=== PATIENT | female | born 1960 | race American Indian/Alaskan Native ===

== ENCOUNTER 2018-02-11 20:29 | Emergency (ER) | payer MEDICARE ==
[2018-02-12] MEDS ORDERED: TORADOL ONE (00:01)
[2018-02-12] MEDS ORDERED: TORADOL IM ONE (00:02)
--- NOTE | 2018-02-12 00:06 | Emergency Department Report ---
ED Neck Pain/Injury HPI - General Chief Complaint: Neck Pain/Injury Stated Complaint: SHOULDER NECK PAIN Time Seen by Provider: 02/12/18 00:01 Mode of arrival: Ambulatory Limitations: Physical Limitation - History of Present Illness Initial Comments: 57-year-old -[place] female with a past medical history of arthritis, asthma, diabetes comes in complaining of neck pain 1 month. Patient reports that she's had this type of pain in the past and was given muscle relaxant and pain medication. Patient with this she has not taken any pain medication. She has tried rubbing topical cream and icy hot patches which reports does not help. Patient denies any trauma she does not do any repetitive work. She has had no fever no chills no nausea no vomiting. MD Complaint: neck pain -: month(s) (1) Severity: similar to prior neck ana maria Severity scale (0 -10): 10 Quality: burning, aching Consistency: constant Improves With: medication OTC/prescribe Worsens With: movement of neck Associated Symptoms: none Treatments Prior to Arrival: none - Related Data Previous Rx's Medication Instructions Recorded Last Taken Type Naproxen [Naprosyn] 500 mg PO BID #15 tablet 02/12/18 Unknown Rx methOCARBAMOL [Robaxin TAB] 500 mg PO BID #15 tab 02/12/18 Unknown Rx Allergies Allergy/AdvReac Type Severity Reaction Status Date / Time aspirin Allergy Swelling Verified 02/11/18 21:22 ED Review of Systems ROS: Stated complaint: SHOULDER NECK PAIN Other details as noted in HPI Constitutional: denies: chills, fever Eyes: denies: eye pain, eye discharge, vision change ENT: denies: ear pain, throat pain Respiratory: denies: cough, shortness of breath, wheezing Cardiovascular: denies: chest pain, palpitations Endocrine: no symptoms reported Gastrointestinal: denies: abdominal pain, nausea, diarrhea Genitourinary: denies: urgency, dysuria, discharge Musculoskeletal: myalgia, other (neck pain). denies: back pain, joint swelling , arthralgia Skin: denies: rash, lesions Neurological: denies: headache, weakness, paresthesias Psychiatric: denies: anxiety, depression Hematological/Lymphatic: denies: easy bleeding, easy bruising ED Past Medical Hx - Past Medical History Previous Medical History?: Yes Hx Diabetes: Yes Hx Arthritis: Yes Hx Asthma: Yes - Surgical History Past Surgical History?: Yes Hx Cholecystectomy: Yes Additional Surgical History: tonsils, eye, spur removal - Social History Smoking Status: Former Smoker Substance Use Type: None - Medications Home Medications: Home Medications Medication Instructions Recorded Confirmed Last Taken Type Naproxen [Naprosyn] 500 mg PO BID #15 tablet 02/12/18 Unknown Rx methOCARBAMOL [Robaxin TAB] 500 mg PO BID #15 tab 02/12/18 Unknown Rx ED Physical Exam - General Limitations: Physical Limitation General appearance: alert, in no apparent distress - Head Head exam: Present: atraumatic, normocephalic - ENT ENT exam: Present: mucous membranes moist - Neck Neck exam: Present: normal inspection, tenderness (left trapeze), full ROM. Absent: lymphadenopathy - Extremities Exam Extremities exam: Present: normal inspection, full ROM. Absent: tenderness - Back Exam Back exam: Present: normal inspection, full ROM. Absent: tenderness - Neurological Exam Neurological exam: Present: alert, oriented X3 - Psychiatric Psychiatric exam: Present: normal affect, normal mood - Skin Skin exam: Present: warm, dry, intact, normal color. Absent: rash ED Course Vital Signs 02/11/18 21:22 Temperature 98.1 F Pulse Rate 84 Respiratory 20 Rate Blood Pressure 132/85 O2 Sat by Pulse 99 Oximetry ED Medical Decision Making - Medical Decision Making Patient has been evaluated by this provider fast track. Patient reports that she has an allergy to aspirin but can take naproxen and ibuprofen. Discussed the patient we will give her a Toradol injection. I will discharge patient home on naproxen and Robaxin for neck pain and muscle spasm. Patient verbalized understanding. Critical care attestation.: If time is entered above; I have spent that time in minutes in the direct care of this critically ill patient, excluding procedure time. ED Disposition Clinical Impression: Muscle spasms of neck Disposition: DC-01 TO HOME OR SELFCARE Is pt being admited?: No Does the pt Need Aspirin: No Condition: Stable Instructions: Muscle Spasm (ED) Additional Instructions: Please take medication as prescribed. Follow up with her primary care provider. Prescriptions: methOCARBAMOL [Robaxin TAB] 500 mg PO BID #15 tab Naproxen [Naprosyn] 500 mg PO BID #15 tablet Referrals: AMAN FLOREZ MD [Primary Care Provider] - 3-5 Days EFRAIN DIANA MD [Referring] - 3-5 Days
[2018-02-12 00:27] VITALS: BP 131/83
== END 2018-02-12 00:27 | disposition home or self-care (01) ==
LOC: ED 20:29
DX: M54.2 Cervicalgia (principal); E11.9 Type 2 diabetes mellitus without complications; M19.90 Unspecified osteoarthritis, unspecified site; Z87.891 Personal history of nicotine dependence; Z88.6 Allergy status to analgesic agent
CPT/HCPCS: 96372; 99282; J1885

== ENCOUNTER 2018-02-28 14:35 | Emergency (ER) | payer MEDICARE, MEDICAID ==
--- NOTE | 2018-02-28 19:00 | Emergency Department Report ---
Blank Doc - Documentation Documentation: Patient is a 57-year-old female who has some vaginal irritation for the last several days who denies dysuria vaginal discharge nausea vomiting diarrhea at this time. Patient also states she has a rumbling sensation in her upper abdomen with frequent belching as well for the past 3 days. Urinalysis will be performed to rule out UTI. Patient has no gallbladder and most likely the upper abdominal discomfort is likely gas related.
[2018-02-28 20:28] LABS: Bacteria,Urine 2+ /HPF (Negative); Bilirubin,Urine NEG (Negative); Blood,Urine SM (Negative); Color,Urine Yellow (Yellow); Mucus,Urine FEW /HPF; Protein,Urine <15 mg/dL mg/dL (Negative); Urobilinogen,Urine < 2.0 mg/dL (<2.0)
--- NOTE | 2018-02-28 20:58 | Emergency Department Report ---
ED Female HPI - General Chief complaint: Urogenital-Female Stated complaint: ABD PAIN/VAGINAL ISSUES Time Seen by Provider: 02/28/18 18:46 Source: patient Mode of arrival: Ambulatory Limitations: No Limitations - History of Present Illness Initial comments: Patient is a 57-year-old female who has some vaginal irritation for the last several days. Patient states that she uses approximately irritation with no lesions or itching. She denies fever/chills/nausea/vomiting/ abdominal pain/vaginal discharge/vaginal lesions or bleeding/diarrhea Patient also states she has a rumbling sensation in her upper abdomen with frequent belching as well for the past 3 days. Patient states she is able to eat food and drink fluids with no problems. - Related Data Previous Rx's Medication Instructions Recorded Last Taken Type Naproxen [Naprosyn] 500 mg PO BID #15 tablet 02/12/18 Unknown Rx methOCARBAMOL [Robaxin TAB] 500 mg PO BID #15 tab 02/12/18 Unknown Rx Ciprofloxacin HCl [Ciprofloxacin 500 mg PO Q12HR #14 tab 02/28/18 Unknown Rx TAB] Famotidine [Pepcid] 20 mg PO BID #20 tablet 02/28/18 Unknown Rx Allergies Allergy/AdvReac Type Severity Reaction Status Date / Time aspirin Allergy Swelling Verified 02/11/18 21:22 ED Review of Systems ROS: Stated complaint: ABD PAIN/VAGINAL ISSUES Other details as noted in HPI Constitutional: denies: chills, fever Eyes: denies: eye pain, eye discharge, vision change ENT: denies: ear pain, throat pain Respiratory: denies: cough, shortness of breath, wheezing Cardiovascular: denies: chest pain, palpitations Endocrine: no symptoms reported Gastrointestinal: denies: abdominal pain, nausea, diarrhea, constipation Genitourinary: frequency. denies: urgency, dysuria, hematuria, discharge, dyspareunia Musculoskeletal: denies: back pain, joint swelling, arthralgia Skin: denies: rash, lesions Neurological: denies: headache, weakness, paresthesias Psychiatric: denies: anxiety, depression Hematological/Lymphatic: denies: easy bleeding, easy bruising ED Past Medical Hx - Past Medical History Hx Diabetes: Yes Hx Arthritis: Yes Hx Asthma: Yes - Surgical History Hx Cholecystectomy: Yes Additional Surgical History: tonsils, eye, spur removal - Social History Smoking Status: Former Smoker Substance Use Type: None - Medications Home Medications: Home Medications Medication Instructions Recorded Confirmed Last Taken Type Naproxen [Naprosyn] 500 mg PO BID #15 tablet 02/12/18 Unknown Rx methOCARBAMOL [Robaxin TAB] 500 mg PO BID #15 tab 02/12/18 Unknown Rx Ciprofloxacin HCl [Ciprofloxacin 500 mg PO Q12HR #14 tab 02/28/18 Unknown Rx TAB] Famotidine [Pepcid] 20 mg PO BID #20 tablet 02/28/18 Unknown Rx ED Physical Exam - General Limitations: No Limitations General appearance: alert, in no apparent distress - Head Head exam: Present: atraumatic, normocephalic - Eye Eye exam: Present: normal appearance - ENT ENT exam: Present: mucous membranes moist - Neck Neck exam: Present: normal inspection - Respiratory Respiratory exam: Present: normal lung sounds bilaterally. Absent: respiratory distress - Cardiovascular Cardiovascular Exam: Present: regular rate, normal rhythm. Absent: systolic murmur, diastolic murmur, rubs, gallop - GI/Abdominal GI/Abdominal exam: Present: soft, normal bowel sounds - Extremities Exam Extremities exam: Present: normal inspection - Back Exam Back exam: Present: normal inspection - Neurological Exam Neurological exam: Present: alert, oriented X3 - Psychiatric Psychiatric exam: Present: normal affect, normal mood - Skin Skin exam: Present: warm, dry, intact, normal color. Absent: rash ED Course Vital Signs 02/28/18 15:33 Temperature 97.8 F Pulse Rate 74 Respiratory 18 Rate Blood Pressure 131/84 O2 Sat by Pulse 100 Oximetry ED Medical Decision Making - Medical Decision Making This is a 57-year-old female who presents to ED with urinary tract infection ED course: Urinalysis positive for bacteria, leukocytes, nitrites. I discussed findings with the patient. I discussed the patient will need antibiotics I discussed the patient will follow up with her primary care physician. Patient is in no acute or respiratory distress. Vital signs are normal. Pepcid given for acid reflux. Critical care attestation.: If time is entered above; I have spent that time in minutes in the direct care of this critically ill patient, excluding procedure time. ED Disposition Clinical Impression: UTI (urinary tract infection), uncomplicated Disposition: DC-01 TO HOME OR SELFCARE Is pt being admited?: No Does the pt Need Aspirin: No Condition: Stable Instructions: Urinary Tract Infection in Women (ED) Additional Instructions: Make sure to follow up with the primary care physician as discussed. Take all your medications as you've been prescribed. If you have any worsening symptoms or develop new symptoms please return to ED immediately. Prescriptions: Ciprofloxacin HCl [Ciprofloxacin TAB] 500 mg PO Q12HR #14 tab Famotidine [Pepcid] 20 mg PO BID #20 tablet Referrals: PRIMARY CARE, [Primary Care Provider] - 3-5 Days MAGO KAUFMAN MD [Referring] - 3-5 Days [facility] [Outside] - 3-5 Days [facility] [Outside] - 3-5 Days Forms: Work/School Release Form(ED) Time of Disposition: 21:11
[2018-02-28 21:45] VITALS: BP 123/69
== END 2018-02-28 21:44 | disposition home or self-care (01) ==
LOC: ED 14:35
DX: N39.0 Urinary tract infection, site not specified (principal); E11.9 Type 2 diabetes mellitus without complications; M19.90 Unspecified osteoarthritis, unspecified site; J45.909 Unspecified asthma, uncomplicated; Z90.49 Acquired absence of other specified parts of digestive tract; Z88.6 Allergy status to analgesic agent
CPT/HCPCS: 81001; 99283

== ENCOUNTER 2018-03-30 20:09 | Emergency (ER) | payer MEDICARE, MEDICAID ==
[2018-03-30 20:25] VITALS: BP 149/88
== END 2018-03-31 01:16 | disposition left against medical advice (07) ==
LOC: ED 20:09
DX: R10.9 Unspecified abdominal pain (principal); R51 Headache; Z53.21 Procedure and treatment not carried out due to patient leaving prior to being seen by health care provider

== ENCOUNTER 2018-05-19 09:46 | Emergency (ER) | payer MEDICARE ==
[2018-05-19 09:58] VITALS: BP 133/87
[2018-05-19 11:29] LABS: Bilirubin,Urine NEG (Negative); Blood,Urine NEG (Negative); Color,Urine Yellow (Yellow); Protein,Urine <15 mg/dL mg/dL (Negative); Urobilinogen,Urine < 2.0 mg/dL (<2.0)
--- NOTE | 2018-05-19 11:45 | Emergency Department Report ---
ED Back Pain/Injury HPI - General Chief Complaint: Back Pain/Injury Stated Complaint: LOWER BACK Time Seen by Provider: 05/19/18 11:45 Source: patient, family Limitations: No Limitations - History of Present Illness Initial Comments: Patient here reports that she is having an left lower back pain that radiated onto her right hip and side. She reports the pain is sharp. Patient had previous episode of back pain and she says she has rheumatoid arthritis and osteoarthritis all over her body. She said her pain is 10 out of 10. She has a medical interpreter who is Dr. Wright and her primary care doctor is Dr. Lang. Pain is worse to walk-in and exertion better at rest. She said she took over- the-counter Motrin without any relief. Denies any fever or chills. Denies any nausea or vomiting. Denies any loss of bowel or bladder control. Denies any abdominal pain. MD Complaint: back pain -: Last night Similar Symptoms Previously: Yes Place: home Radiation: other (right hip and buttocks down to the thigh) Severity: severe Severity scale (0 -10): 10 Quality: sharp Consistency: constant Improves With: none Worsens With: movement, walking, other (exertion) Context: unknown, other (history of chronic back pain) Associated Symptoms: difficulty walking, other (patient uses a cane to ambulate) . denies: confusion, cough, difficulty urinating, diaphoresis, incontinence, fever/chills, constipation, headaches, abdominal pain, loss of appetite, malaise , nausea/vomiting, rash, seizure, shortness of breath, syncope Treatments Prior to Arrival: NSAIDS - Related Data Previous Rx's Medication Instructions Recorded Last Taken Type Naproxen [Naprosyn] 500 mg PO BID #15 tablet 02/12/18 Unknown Rx methOCARBAMOL [Robaxin TAB] 500 mg PO BID #15 tab 02/12/18 Unknown Rx Ciprofloxacin HCl [Ciprofloxacin 500 mg PO Q12HR #14 tab 02/28/18 Unknown Rx TAB] Famotidine [Pepcid] 20 mg PO BID #20 tablet 02/28/18 Unknown Rx traMADol [Ultram 50 MG tab] 50 mg PO Q6HR PRN #16 tablet 05/19/18 Unknown Rx Allergies Allergy/AdvReac Type Severity Reaction Status Date / Time aspirin Allergy Swelling Verified 02/11/18 21:22 ED Review of Systems ROS: Stated complaint: LOWER BACK Other details as noted in HPI Constitutional: denies: chills, fever Eyes: denies: eye pain, vision change ENT: denies: ear pain, throat pain Respiratory: denies: cough, shortness of breath, SOB with exertion, SOB at rest , wheezing Cardiovascular: denies: chest pain, palpitations, dyspnea on exertion, edema, syncope, paroxysmal nocturnal dyspnea Gastrointestinal: denies: abdominal pain, nausea, vomiting, diarrhea, constipation, hematemesis, hematochezia Genitourinary: denies: urgency, dysuria, discharge Musculoskeletal: back pain, arthralgia. denies: joint swelling, myalgia Skin: denies: rash, lesions Neurological: abnormal gait (uses a cane to ambulate). denies: headache, weakness, numbness, paresthesias, confusion ED Past Medical Hx - Past Medical History Medical history: arthritis, asthma, diabetes Rheumatoid arthritis. Osteoarthritis. Chronic back pain Psychiatric history: other (I surgery, tonsillectomy) KEG FILLER history: no KEG FILLER history LMP comments: post menopausal Family history: diabetes, hypertension - Social History Smoking Status: Never Smoker Alcohol use: none Drug use: none ED Back Pain Physical Exam - Exam General: Vital signs noted. No distress. Alert and acting appropriately. This is a 57-year-old female well-nourished well-developed Extremity: No clubbing, cyanosis or edema. Positive pulses all extremities. Lungs: Clear to auscultate bilaterally, no rhonchi wheezes or rales CV: S1, S2. Regular rate and rhythm Back/Abdomen: No Abdominal Tenderness (soft, nontender to palpate in all quadrants and positive bowel sounds), No Perithoracic Tenderness, No Perilumbar Tenderness, No Sacroiliac Tenderness, No Flank Tenderness, No Straight Leg Raise Pain Neuro: Yes Normal Sensation, Yes Normal DTR's, No Motor Weakness, No Normal Gait (patient has unsteady gait and she walks with cane) ED Course Vital Signs 05/19/18 09:53 Temperature 98.1 F Pulse Rate 76 Respiratory 22 Rate Blood Pressure 133/87 O2 Sat by Pulse 99 Oximetry - Reevaluation(s) Reevaluation #1: 05/19/18 11:56 Patient given and Decadron 10 mg IM, Toradol 30 mg IM, Zofran 8 mg ODT and Percocet 5/325 2 tablets when necessary emergency room Reevaluation #2: 05/19/18 12:15 Patient reports that her pain is better and she is feeling better. Ed Back Pain Tests - Tests Tests: Normal UA (negative) ED Medical Decision Making - Lab Data Lab Results 05/19/18 Range/Units Unknown Urine Color Yellow (Yellow) Urine Turbidity Clear (Clear) Urine pH 6.0 (5.0-7.0) Ur Specific [place] 1.015 (1.003-1.030) Urine Protein <15 mg/dl (Negative) mg/dL Urine Glucose (UA) Neg (Negative) mg/dL Urine Ketones Neg (Negative) mg/dL Urine Blood Neg (Negative) Urine Nitrite Neg (Negative) Urine Bilirubin Neg (Negative) Urine Urobilinogen < 2.0 (<2.0) mg/dL Ur Leukocyte Esterase Neg (Negative) Urine WBC (Auto) 1.0 (0.0-6.0) /HPF Urine RBC (Auto) 3.0 (0.0-6.0) /HPF U Epithel Cells (Auto) < 1.0 (0-13.0) /HPF - Medical Decision Making ED course: This is a 57-year-old female here for acute exacerbation of chronic back pain with radiation of pain down to her right lower extremity. Patient is here to be of evaluated. She denies any recent injuries. She has been followed by medical interpreter and primary care physician. I saw and examined patient and she was found to have right lumbar radiculopathy , acute exacerbation of chronic back pain. I explained diagnosis the patient but she is already had similar symptoms and voice understanding. Urinalysis negative finance and this was explained to patient and she voiced understanding A/P 1: Acute exacerbation of chronic back pain: Continue follow-up for medical interpreter and for her to orthopedist. Patient given Decadron 10 mg IM, Toradol 30 mg I am, Zofran 8 mg ODT and Percocet 2 tablets by mouth 5/325 mg in the emergency room which relieved her pain. I will discharge her home on tramadol. 2: Right lumbar radiculopathy-better after pain medication. Patient given educational medication, treatment plan, needs follow-up. Given information on diagnosis and her lab results and she voices understanding. Referral to orthopedic doctor Patient discharged home to follow-up with her medical interpreter and primary care physician and also referred to orthopedic doctor to follow-up in 4 days. She is given a prescription for Ultram. Vital signs are stable and she is afebrile. Patient says she is feeling better and discharged home in stable condition with her family member. I discussed with patient If condition worsens , return to the emergency room and she voiced understanding - Differential Diagnosis UTI, acute exacerbation of chronic back pain Critical care attestation.: If time is entered above; I have spent that time in minutes in the direct care of this critically ill patient, excluding procedure time. ED Disposition Clinical Impression: Acute exacerbation of chronic low back pain, Right lumbar radiculopathy Disposition: TO HOME OR SELFCARE Is pt being admited?: No Does the pt Need Aspirin: No Condition: Stable Instructions: Lumbar Radiculopathy (ED), Chronic Back Pain (ED) Additional Instructions: Follow-up with your medical interpreter and primary care physician in 4 days and see referral to orthopedic doctor Take tramadol for pain but please do not drive or operate machinery while taking tramadol as this medication causes drowsiness. If he condition worsens, return to the emergency room Prescriptions: traMADol [Ultram 50 MG tab] 50 mg PO Q6HR PRN #16 tablet PRN Reason: Pain Referrals: EFRAIN LANG MD [Referring] - 05/23/18 follow-up with your, medical interpreter Dr. Wright [Other] - 05/23/18 BRENTON SAMUEL MD [Staff Physician] - 3-5 Days Forms: Accompanied Note
[2018-05-19] MEDS ORDERED: PERCOCET 5/325 PO ONE (11:48)
[2018-05-19] MEDS ORDERED: DECADRON IM ONE (11:48)
[2018-05-19] MEDS ORDERED: ZOFRAN ODT PO ONE (11:48)
[2018-05-19] MEDS ORDERED: TORADOL IM ONE (11:48)
== END 2018-05-19 12:10 | disposition home or self-care (01) ==
LOC: ED 09:46
DX: M54.16 Radiculopathy, lumbar region (principal); G89.29 Other chronic pain; Z88.6 Allergy status to analgesic agent
CPT/HCPCS: 81001; 96372; 99283; J1100; J1885; Q0162

== ENCOUNTER 2018-06-05 09:48 | Emergency (ER) | payer MEDICARE ==
[2018-06-05 10:19] VITALS: BP 144/83
--- NOTE | 2018-06-05 12:53 | Emergency Department Report ---
ED Lower Extremity HPI - General Chief Complaint: Extremity Injury, Lower Stated Complaint: LEFT LEG PAIN Time Seen by Provider: 06/05/18 12:01 Source: patient Mode of arrival: Ambulatory Limitations: No Limitations - History of Present Illness Initial Comments: Patient denies trauma although she thinks she might twisted her left knee. Complains of left knee pain into the calf, she was seen yesterday rebecca And was told that they don't have an ultrasound with a worried about a DVT she presents today stating that she is worried about a DVT; ultrasound is negative for DVT per tech here for persistent left calf and left knee pain, no redness or warmth no numbness or weakness MD Complaint: other (left knee and left calf pain) Injury: Knee: Left Type of Injury: unknown Severity: mild, moderate Severity scale (0 -10): 4 Associated Symptoms: able to partially bear weight, ambulatory. denies: snap/ pop sensation, swelling, numbness, tingling - Related Data Previous Rx's Medication Instructions Recorded Last Taken Type methOCARBAMOL [Robaxin TAB] 500 mg PO BID #15 tab 02/12/18 Unknown Rx Ciprofloxacin HCl [Ciprofloxacin 500 mg PO Q12HR #14 tab 02/28/18 Unknown Rx TAB] traMADol [Ultram 50 MG tab] 50 mg PO Q6HR PRN #16 tablet 05/19/18 Unknown Rx Famotidine [Pepcid] 20 mg PO BID #20 tablet 06/05/18 Unknown Rx Naproxen [Naprosyn TAB] 500 mg PO BID #15 tablet 06/05/18 Unknown Rx Allergies Allergy/AdvReac Type Severity Reaction Status Date / Time aspirin Allergy Swelling Verified 06/05/18 10:16 ED Review of Systems ROS: Stated complaint: LEFT LEG PAIN Other details as noted in HPI Comment: All other systems reviewed and negative Constitutional: denies: chills, diaphoresis, fever, malaise Eyes: denies: eye discharge, vision change ENT: denies: dental pain, hearing loss, epistaxis Respiratory: denies: shortness of breath, SOB with exertion, SOB at rest, stridor Cardiovascular: denies: chest pain, palpitations, dyspnea on exertion, orthopnea , edema, syncope Gastrointestinal: denies: abdominal pain, nausea, vomiting, diarrhea, constipation, hematemesis, melena, hematochezia Genitourinary: denies: urgency, dysuria, frequency, hematuria, discharge, abnormal menses, dyspareunia Musculoskeletal: joint swelling, arthralgia, myalgia Skin: denies: change in color, change in hair/nails, pruritus Neurological: denies: headache, weakness, numbness, paresthesias, confusion ED Past Medical Hx - Past Medical History Hx Diabetes: Yes Hx Arthritis: Yes Hx Asthma: Yes Additional medical history: Rheumatoid arthritis. Osteoarthritis. Chronic back pain - Surgical History Hx Cholecystectomy: Yes Additional Surgical History: tonsils, eye, spur removal - Social History Smoking Status: Never Smoker - Medications Home Medications: Home Medications Medication Instructions Recorded Confirmed Last Taken Type methOCARBAMOL [Robaxin TAB] 500 mg PO BID #15 tab 02/12/18 Unknown Rx Ciprofloxacin HCl [Ciprofloxacin 500 mg PO Q12HR #14 tab 02/28/18 Unknown Rx TAB] traMADol [Ultram 50 MG tab] 50 mg PO Q6HR PRN #16 tablet 05/19/18 Unknown Rx Famotidine [Pepcid] 20 mg PO BID #20 tablet 06/05/18 Unknown Rx Naproxen [Naprosyn TAB] 500 mg PO BID #15 tablet 06/05/18 Unknown Rx ED Physical Exam - General Limitations: No Limitations General appearance: alert, other (nontoxic, vss) - Head Head exam: Present: atraumatic, normocephalic - Eye Eye exam: Present: normal appearance, PERRL, EOMI - ENT ENT exam: Present: normal exam - Neck Neck exam: Present: normal inspection. Absent: tenderness, meningismus - Respiratory Respiratory exam: Present: normal lung sounds bilaterally. Absent: respiratory distress - GI/Abdominal GI/Abdominal exam: Present: soft. Absent: tenderness, guarding - Extremities Exam Extremities exam: Present: other (tenderness with possible small effusion to the left knee without gross instability distally neurovascular intact with good capillary refill, negative Pelaez test, negative evidence of tendon disruption , there is some calf tenderness as well no redness or warmth) - Neurological Exam Neurological exam: Present: alert, oriented X3, CN II-XII intact. Absent: motor sensory deficit ED Course Vital Signs 06/05/18 10:16 Temperature 98.5 F Pulse Rate 78 Respiratory 18 Rate Blood Pressure 144/83 O2 Sat by Pulse 96 Oximetry ED Lower Extremity MDM - Radiology Data Radiology results: report reviewed - Medical Decision Making No evidence of DVT per u/s, patient with likely acute exacerbation of chronic joint disease she will be placed on rest ice elevate and compression with NSAIDs , she is using them in the past without problems although there is aspirin allergy listed R, she is otherwise stable for outpatient follow-up Critical care attestation.: If time is entered above; I have spent that time in minutes in the direct care of this critically ill patient, excluding procedure time. ED Disposition Clinical Impression: DJD (degenerative joint disease) Disposition: TO HOME OR SELFCARE Is pt being admited?: No Condition: Stable Instructions: Knee Pain (ED), Arthralgia (ED), Osteoarthritis (ED) Additional Instructions: See the doctor listed return if new or alarming symptoms Prescriptions: Famotidine [Pepcid] 20 mg PO BID #20 tablet Naproxen [Naprosyn TAB] 500 mg PO BID #15 tablet Referrals: PRIMARY MD JESSEE [Primary Care Provider] - 3-5 Days BRENTON SAMUEL MD [Staff Physician] - 3-5 Days Time of Disposition: 12:55
== END 2018-06-05 13:14 | disposition home or self-care (01) ==
LOC: ED 09:48
DX: M17.12 Unilateral primary osteoarthritis, left knee (principal); E11.9 Type 2 diabetes mellitus without complications; M19.90 Unspecified osteoarthritis, unspecified site; J45.909 Unspecified asthma, uncomplicated; Z88.6 Allergy status to analgesic agent
CPT/HCPCS: 99283

== ENCOUNTER 2018-07-13 17:43 | Emergency (ER) | payer MEDICAID, MEDICARE ==
[2018-07-13 18:39] VITALS: BP 109/75
[2018-07-13] MEDS ORDERED: NORCO 5/325 PO ONE (20:36)
[2018-07-13 21:41] LABS: Hematocrit 35.4 % (30.3-42.9); Hemoglobin 12.5 gm/dl (10.1-14.3); Mean Corpuscular HGB Conc 35 % (30-34); Mean Corpuscular Hemoglobin 30 pg (28-32); Mean Corpuscular Volume 84 fl (79-97); Platelet Count 458 K/mm3 (140-440); Red Blood Count 4.21 M/mm3 (3.65-5.03)
[2018-07-13 21:47] LABS: Basophils % (Auto) 0.4 % (0.0-1.8); Eosinophils # (Auto) 0.1 K/mm3 (0.0-0.4); Eosinophils % (Auto) 1.2 % (0.0-4.3); Lymphocytes # (Auto) 2.9 K/mm3 (1.2-5.4); Monocytes # (Auto) 0.7 K/mm3 (0.0-0.8)
[2018-07-13 21:57] LABS: Alanine Aminotransferase 22 units/L (7-56); Albumin 3.5 g/dL (3.9-5); BUN/Creatinine Ratio 14; Blood Urea Nitrogen 11 mg/dL (7-17); Calcium 9.8 mg/dL (8.4-10.2); Hemolysis Index 1
--- NOTE | 2018-07-13 22:14 | XRay Report ---
FINAL REPORT EXAM: XR KNEE 3V LT HISTORY: left knee pain TECHNIQUE: 4 views of left knee. PRIORS: None. FINDINGS: Degenerative changes in all 3 joint compartments, most pronounced in the lateral and patellofemoral joint spaces. Moderate suprapatellar joint effusion. No apparent fracture or dislocation. Soft tissues grossly unremarkable. IMPRESSION: 1. No acute osseous abnormality. 2. Degenerative changes and joint effusion.
--- NOTE | 2018-07-13 22:17 | Emergency Department Report ---
ED Lower Extremity HPI - General Chief Complaint: Extremity Problem,Nontraumatic Stated Complaint: LEFT LEG SWELLING Time Seen by Provider: 07/13/18 20:34 Source: patient Mode of arrival: Wheelchair Limitations: No Limitations - History of Present Illness Initial Comments: Patient is a 57-year-old [place]er female with history of rheumatoid arthritis who presents for left leg pain and swelling [address] Wright for rule out DVT pain today actually and left knee there is swelling no erythema patient denies fall, pain is 5/10 aching radiating to her right foot patient states mild right calf tenderness with some aching intermittent to pain is exacerbated by weight bearing pain relieved by offloading and wrist there is no numbness no tingling swelling radiates from left knee and left tib-fib pain is not exacerbated by flexion and extension of foot states unable to bear weight for last 3 days MD Complaint: knee injury Onset/Timin Place: home Severity: moderate Severity scale (0 -10): 6 Improves With: rest Worsens With: weight bearing, movement, palpation Context: other (swelling hx of rheumatoid arthritisl knees resolved) Associated Symptoms: swelling, able to partially bear weight. denies: numbness , tingling - Related Data Previous Rx's Medication Instructions Recorded Last Taken Type Ciprofloxacin HCl [Ciprofloxacin 500 mg PO Q12HR #14 tab 02/28/18 Unknown Rx TAB] traMADol [Ultram 50 MG tab] 50 mg PO Q6HR PRN #16 tablet 05/19/18 Unknown Rx Famotidine [Pepcid] 20 mg PO BID #20 tablet 06/05/18 Unknown Rx Acetaminophen/Codeine [Tylenol 1 tab PO Q8H PRN #15 tab 07/13/18 Unknown Rx /Codeine # 3 tab] Cyclobenzaprine [Flexeril] 10 mg PO BID PRN #20 tablet 07/13/18 Unknown Rx Naproxen [Naprosyn TAB] 500 mg PO BID #15 tablet 07/13/18 Unknown Rx methOCARBAMOL [Robaxin TAB] 500 mg PO BID #15 tab 07/13/18 Unknown Rx Allergies Allergy/AdvReac Type Severity Reaction Status Date / Time aspirin Allergy Swelling Verified 06/05/18 10:16 ED Review of Systems ROS: Stated complaint: LEFT LEG SWELLING Other details as noted in HPI Constitutional: denies: chills, fever Eyes: denies: eye pain, eye discharge, vision change ENT: denies: ear pain, throat pain Respiratory: denies: cough, shortness of breath, wheezing Cardiovascular: denies: chest pain, palpitations Endocrine: no symptoms reported Gastrointestinal: denies: abdominal pain, nausea, diarrhea Genitourinary: denies: urgency, dysuria, discharge Musculoskeletal: arthralgia, myalgia Skin: denies: rash, lesions Neurological: denies: headache, weakness, paresthesias Psychiatric: denies: anxiety, depression Hematological/Lymphatic: denies: easy bleeding, easy bruising ED Past Medical Hx - Past Medical History Hx Diabetes: Yes Hx Arthritis: Yes Hx Asthma: Yes Additional medical history: Rheumatoid arthritis. Osteoarthritis. Chronic back pain - Surgical History Hx Cholecystectomy: Yes Additional Surgical History: tonsils, eye, spur removal - Social History Smoking Status: Never Smoker Substance Use Type: None - Medications Home Medications: Home Medications Medication Instructions Recorded Confirmed Last Taken Type Ciprofloxacin HCl [Ciprofloxacin 500 mg PO Q12HR #14 tab 02/28/18 Unknown Rx TAB] traMADol [Ultram 50 MG tab] 50 mg PO Q6HR PRN #16 tablet 05/19/18 Unknown Rx Famotidine [Pepcid] 20 mg PO BID #20 tablet 06/05/18 Unknown Rx Acetaminophen/Codeine [Tylenol 1 tab PO Q8H PRN #15 tab 07/13/18 Unknown Rx /Codeine # 3 tab] Cyclobenzaprine [Flexeril] 10 mg PO BID PRN #20 tablet 07/13/18 Unknown Rx Naproxen [Naprosyn TAB] 500 mg PO BID #15 tablet 07/13/18 Unknown Rx methOCARBAMOL [Robaxin TAB] 500 mg PO BID #15 tab 07/13/18 Unknown Rx ED Physical Exam - General Limitations: No Limitations General appearance: alert, in no apparent distress - Head Head exam: Present: atraumatic, normocephalic - Eye Eye exam: Present: normal appearance - ENT ENT exam: Present: normal exam, mucous membranes moist - Neck Neck exam: Present: normal inspection ED Course Vital Signs 07/13/18 18:34 Temperature 98.3 F Pulse Rate 86 Respiratory 16 Rate Blood Pressure 109/75 O2 Sat by Pulse 100 Oximetry ED Lower Extremity MDM - Lab Data Result diagrams: 07/13/18 21:29 07/13/18 21:29 - Radiology Data Radiology results: report reviewed, image reviewed No fracture moderate knee effusion patellofemoral - Medical Decision Making This is likely arthritis pain there's been no fall injury, there is no anterior drawer moderate knee swelling and pain with rotation click or pop resume moderate swelling through the calf line no palpable cord negative Homans sign no erythema no secondary vasculature pedal pulses equally palpable bilateral + 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 plan this date crutches offloading Tylenol 3 when necessary pain labs note a normal PT INR PTT patient verbalizes understanding and agreement was same returned to radiology tomorrow for outpatient DVT study. Recurring knee effusions are chronic problem for this patient and likely likely source of this exacerbation . Critical care attestation.: If time is entered above; I have spent that time in minutes in the direct care of this critically ill patient, excluding procedure time. ED Disposition Clinical Impression: Arthritis of left knee, Knee effusion, left Disposition: TO HOME OR SELFCARE Is pt being admited?: No Does the pt Need Aspirin: No Condition: Stable Instructions: Knee Effusion (ED), Osteoarthritis (ED), Rheumatoid Arthritis (ED ) Additional Instructions: follow up with Dr. Wright Dillan Rhu[facility]ology as scheduled in 2-3 days Prescriptions: Acetaminophen/Codeine [Tylenol /Codeine # 3 tab] 1 tab PO Q8H PRN #15 tab PRN Reason: pain Cyclobenzaprine [Flexeril] 10 mg PO BID PRN #20 tablet PRN Reason: Muscle Spasm methOCARBAMOL [Robaxin TAB] 500 mg PO BID #15 tab Naproxen [Naprosyn TAB] 500 mg PO BID #15 tablet Referrals: BRENTON SAMUEL MD [Staff Physician] - 3-5 Days PRIMARY CAREMD [Primary Care Provider] - 3-5 Days Forms: Work/School Release Form(ED) Time of Disposition: 22:34
== END 2018-07-13 22:54 | disposition home or self-care (01) ==
LOC: ED 17:43
DX: M25.462 Effusion, left knee (principal); M06.9 Rheumatoid arthritis, unspecified; J45.909 Unspecified asthma, uncomplicated; E11.9 Type 2 diabetes mellitus without complications; M54.9 Dorsalgia, unspecified; G89.29 Other chronic pain; Z88.6 Allergy status to analgesic agent; Z90.49 Acquired absence of other specified parts of digestive tract
CPT/HCPCS: 36415; 80053; 85025; 85610; 85730

== ENCOUNTER 2019-09-27 02:53 | Emergency (ER) | payer MEDICARE ==
[2019-09-27] MEDS ORDERED: HYDROcodone/ACETAMINOPHEN 5-325 MG TAB PO ONE (07:06)
[2019-09-27 07:32] LABS: Basophils # (Auto) 0.1 K/mm3 (0.0-0.1); Eosinophils # (Auto) 0.2 K/mm3 (0.0-0.4); Eosinophils % (Auto) 1.6 % (0.0-4.3); Hemoglobin 12.9 gm/dl (10.1-14.3); Lymphocytes # (Auto) 3.3 K/mm3 (1.2-5.4); Mean Corpuscular HGB Conc 32 % (30-34); Mean Corpuscular Volume 87 fl (79-97); Monocytes # (Auto) 0.7 K/mm3 (0.0-0.8); Monocytes % (Auto) 7.2 % (0.0-7.3); Platelet Count 376 K/mm3 (140-440); Red Blood Count 4.59 M/mm3 (3.65-5.03); Red Cell Distribution Width 14.5 % (13.2-15.2)
[2019-09-27 07:49] LABS: INR 0.95 (0.87-1.13); Partial Thromboplastin Time 27.5 Sec. (24.2-36.6)
[2019-09-27 07:58] LABS: Alanine Aminotransferase 14 units/L (7-56); Albumin 3.7 g/dL (3.9-5); BUN/Creatinine Ratio 16; Blood Urea Nitrogen 11 mg/dL (7-17); Calcium 9.1 mg/dL (8.4-10.2); Hemolysis Index 4
[2019-09-27 07:59] LABS: Bilirubin,Direct < 0.2 mg/dL (0-0.2)
--- NOTE | 2019-09-27 09:31 | Emergency Department Report ---
ED General Adult HPI - General Chief complaint: Sore Throat Stated complaint: THROAT PAIN Time Seen by Provider: 09/27/19 06:24 Source: EMS Mode of arrival: Stretcher Limitations: No Limitations - History of Present Illness Initial comments: This is a 58-year-old female with a history of diabetes type 2 [id number] and rheumatoid arthritis. She complains of discomfort which she describes as a sore throat. However, she is pointing to the sub mandibular area of her lateral neck as the area of soreness and calling this her throat. She is able to swallow. She is not having any difficulty with her secretions. She complains of some earache as well. He states that she is edentulous on that side. She's had no fever or chills. The pain is moderate and intermittent and of approximately a days duration. -: Gradual, days(s) Location: left (ear and neck) Radiation: non-radiation Severity scale (0 -10): 5 Quality: aching Consistency: intermittent Improves with: none Worsens with: none Associated Symptoms: denies other symptoms Treatments Prior to Arrival: none - Related Data Previous Rx's Medication Instructions Recorded Last Taken Type Ciprofloxacin HCl [Ciprofloxacin 500 mg PO Q12HR #14 tab 02/28/18 Unknown Rx TAB] Famotidine [Pepcid] 20 mg PO BID #20 tablet 06/05/18 Unknown Rx Acetaminophen/Codeine [Tylenol 1 tab PO Q8H PRN #15 tab 07/13/18 Unknown Rx /Codeine # 3 tab] Cyclobenzaprine [Flexeril] 10 mg PO BID PRN #20 tablet 07/13/18 Unknown Rx Naproxen [Naprosyn TAB] 500 mg PO BID #15 tablet 07/13/18 Unknown Rx methOCARBAMOL [Robaxin TAB] 500 mg PO BID #15 tab 07/13/18 Unknown Rx Azithromycin [Zithromax Z-ISIS] 250 mg PO DAILY #6 tab 09/27/19 Unknown Rx traMADol [Ultram 50 MG tab] 50 mg PO Q6HR PRN #10 tablet 09/27/19 Unknown Rx Allergies Allergy/AdvReac Type Severity Reaction Status Date / Time aspirin Allergy Swelling Verified 06/05/18 10:16 ED Review of Systems ROS: Stated complaint: THROAT PAIN Other details as noted in HPI Constitutional: denies: chills, fever Eyes: denies: eye pain, eye discharge, vision change ENT: as per HPI, ear pain. denies: throat pain Respiratory: denies: cough, shortness of breath, wheezing Cardiovascular: denies: chest pain, palpitations Endocrine: no symptoms reported Gastrointestinal: denies: abdominal pain, nausea, diarrhea Genitourinary: denies: urgency, dysuria, discharge Musculoskeletal: denies: back pain, joint swelling, arthralgia Skin: denies: rash, lesions Neurological: denies: headache, weakness, paresthesias Psychiatric: denies: anxiety, depression Hematological/Lymphatic: denies: easy bleeding, easy bruising ED Past Medical Hx - Past Medical History Previous Medical History?: Yes Hx Diabetes: Yes Hx Arthritis: Yes Hx Asthma: Yes Additional medical history: Rheumatoid arthritis. Osteoarthritis. Chronic back pain - Surgical History Past Surgical History?: Yes Hx Cholecystectomy: Yes Additional Surgical History: tonsils, eye, spur removal - Social History Smoking Status: Never Smoker Substance Use Type: None - Medications Home Medications: Home Medications Medication Instructions Recorded Confirmed Last Taken Type Ciprofloxacin HCl [Ciprofloxacin 500 mg PO Q12HR #14 tab 02/28/18 Unknown Rx TAB] Famotidine [Pepcid] 20 mg PO BID #20 tablet 06/05/18 Unknown Rx Acetaminophen/Codeine [Tylenol 1 tab PO Q8H PRN #15 tab 07/13/18 Unknown Rx /Codeine # 3 tab] Cyclobenzaprine [Flexeril] 10 mg PO BID PRN #20 tablet 07/13/18 Unknown Rx Naproxen [Naprosyn TAB] 500 mg PO BID #15 tablet 07/13/18 Unknown Rx methOCARBAMOL [Robaxin TAB] 500 mg PO BID #15 tab 07/13/18 Unknown Rx Azithromycin [Zithromax Z-ISIS] 250 mg PO DAILY #6 tab 09/27/19 Unknown Rx traMADol [Ultram 50 MG tab] 50 mg PO Q6HR PRN #10 tablet 09/27/19 Unknown Rx ED Physical Exam - General Limitations: No Limitations General appearance: alert, in no apparent distress - Head Head exam: Present: atraumatic, normocephalic - Eye Eye exam: Present: normal appearance. Absent: scleral icterus - ENT ENT exam: Present: normal exam, mucous membranes moist, TM's normal bilaterally (the visible TM on the left is normal but it is partially obscured by cerumen), other (throat is entirely clear) - Neck Neck exam: Present: normal inspection, tenderness (appears to have a tender left submandibular lymph node near the angle of the mandible), full ROM, lymphadenopathy. Absent: meningismus, thyromegaly, other - Respiratory Respiratory exam: Present: normal lung sounds bilaterally. Absent: respiratory distress - Cardiovascular Cardiovascular Exam: Present: regular rate, normal rhythm. Absent: systolic murmur, diastolic murmur, rubs, gallop - GI/Abdominal GI/Abdominal exam: Present: soft, normal bowel sounds. Absent: distended, tenderness, guarding, rebound, rigid - Extremities Exam Extremities exam: Present: normal inspection - Back Exam Back exam: Present: normal inspection - Neurological Exam Neurological exam: Present: alert, oriented X3, CN II-XII intact. Absent: motor sensory deficit - Psychiatric Psychiatric exam: Present: normal affect, normal mood - Skin Skin exam: Present: warm, dry, intact, normal color. Absent: rash ED Course Vital Signs 09/27/19 09/27/19 09/27/19 03:11 03:14 04:24 Temperature 98.7 F Pulse Rate Respiratory Rate Blood Pressure 142/74 142/74 Blood Pressure [Right] O2 Sat by Pulse 99 98 Oximetry 09/27/19 09/27/19 09/27/19 04:31 05:31 06:00 Temperature Pulse Rate Respiratory Rate Blood Pressure 143/74 161/75 158/86 Blood Pressure [Right] O2 Sat by Pulse 98 98 94 Oximetry 09/27/19 09/27/19 07:36 09:22 Temperature Pulse Rate 89 87 Respiratory 18 18 Rate Blood Pressure Blood Pressure 113/52 154/94 [Right] O2 Sat by Pulse 100 100 Oximetry - Reevaluation(s) Reevaluation #1: On reexamination the patient looks well. Vital signs are stable. She is not complaining of pain any further. She is appropriate for outpatient disposition and follow-up. 09/27/19 09:30 ED Medical Decision Making - Lab Data Result diagrams: 09/27/19 07:18 09/27/19 07:18 Laboratory Results - last 24 hr 09/27/19 09/27/19 09/27/19 07:18 07:18 07:18 WBC 10.0 RBC 4.59 Hgb 12.9 Hct 40.0 MCV 87 MCH 28 MCHC 32 RDW 14.5 Plt Count 376 Lymph % (Auto) 33.0 Bell % (Auto) 7.2 Eos % (Auto) 1.6 Baso % (Auto) 1.0 Lymph # 3.3 Bell # 0.7 Eos # 0.2 Baso # 0.1 Seg Neutrophils % 57.2 Seg Neutrophils # 5.7 PT 12.6 INR 0.95 APTT 27.5 Sodium 137 Potassium 4.1 Chloride 103.8 Carbon Dioxide 20 L Anion Gap 17 BUN 11 Creatinine 0.7 Estimated GFR > 60 BUN/Creatinine Ratio 16 Glucose 110 H Lactic Acid Calcium 9.1 Magnesium Total Bilirubin 0.50 Direct Bilirubin < 0.2 Indirect Bilirubin 0.3 AST 15 ALT 14 Alkaline Phosphatase 94 Total Protein 7.6 Albumin 3.7 L Albumin/Globulin Ratio 0.9 Group A Strep Rapid 09/27/19 09/27/19 09/27/19 07:18 07:18 Unknown WBC RBC Hgb Hct MCV MCH MCHC RDW Plt Count Lymph % (Auto) Bell % (Auto) Eos % (Auto) Baso % (Auto) Lymph # Bell # Eos # Baso # Seg Neutrophils % Seg Neutrophils # PT INR APTT Sodium Potassium Chloride Carbon Dioxide Anion Gap BUN Creatinine Estimated GFR BUN/Creatinine Ratio Glucose Lactic Acid 1.30 Calcium Magnesium 2.10 Total Bilirubin Direct Bilirubin Indirect Bilirubin AST ALT Alkaline Phosphatase Total Protein Albumin Albumin/Globulin Ratio Group A Strep Rapid Negative Critical care attestation.: If time is entered above; I have spent that time in minutes in the direct care of this critically ill patient, excluding procedure time. ED Disposition Clinical Impression: Lymphadenitis Disposition: DC-01 TO HOME OR SELFCARE Is pt being admited?: No Does the pt Need Aspirin: No Condition: Stable Instructions: Adenitis (ED) Additional Instructions: Follow-up with usual care providers. Return to the emergency department should your problem get worse or there is any visible swelling. Return any fever or chills. Rx as directed. Prescriptions: traMADol [Ultram 50 MG tab] 50 mg PO Q6HR PRN #10 tablet PRN Reason: Pain Azithromycin [Zithromax Z-ISIS] 250 mg PO DAILY #6 tab Referrals: EFRAIN DIANA MD [Primary Care Provider] - 3-5 Days Time of Disposition: 09:31
[2019-09-27 11:25] VITALS: BP 132/66
== END 2019-09-27 11:25 | disposition home or self-care (01) ==
LOC: ED 02:53
DX: I88.9 Nonspecific lymphadenitis, unspecified (principal); E11.9 Type 2 diabetes mellitus without complications; J45.909 Unspecified asthma, uncomplicated; M06.9 Rheumatoid arthritis, unspecified; M54.9 Dorsalgia, unspecified; G89.29 Other chronic pain; Z88.6 Allergy status to analgesic agent; Z79.899 Other long term (current) drug therapy; Z90.49 Acquired absence of other specified parts of digestive tract
CPT/HCPCS: 36415; 80048; 80076; 82140; 83735; 85025; 85610; 85730; 87116; 87430; 99283

== ENCOUNTER 2019-11-13 08:45 | Emergency (ER) | payer MEDICARE ==
[2019-11-13 09:01] VITALS: BP 150/93
--- NOTE | 2019-11-13 10:02 | Emergency Department Report ---
ED Lower Extremity HPI - General Chief Complaint: Extremity Problem,Nontraumatic Stated Complaint: RT FOOT PAIN/SWOLLEN Time Seen by Provider: 11/13/19 09:23 Source: patient Mode of arrival: Ambulatory Limitations: No Limitations - History of Present Illness Initial Comments: This is a 58-year-old female with past medical history of rheumatoid arthritis and degenerative arthritis nontoxic, well nourished in appearance, no acute signs of distress presents to the ED with c/o of right ankle pain x1 month. Vision does see a primary care doctor for this and it was instructed this is a rheumatoid arthritis flareup. Patient denies any trauma. Patient denies any numbness, tingling, fever, chills, nausea, vomiting, chest pain, shortness of breath, headache, stiff neck. Patient denies any joint swelling or joint redness. Patient denies decreased range of motion. Patient denies any decreased gait. Patient stated allergies to aspirin. MD Complaint: ankle injury -: month(s) (1) Injury: Ankle: Right Severity: mild Severity scale (0 -10): 3 Improves With: immobilization Worsens With: movement Associated Symptoms: able to partially bear weight, ambulatory. denies: snap/pop sensation, swelling, numbness, tingling, unable to bear weight - Related Data Previous Rx's Medication Instructions Recorded Last Taken Type Ciprofloxacin HCl [Ciprofloxacin 500 mg PO Q12HR #14 tab 02/28/18 Unknown Rx TAB] Famotidine [Pepcid] 20 mg PO BID #20 tablet 06/05/18 Unknown Rx Acetaminophen/Codeine [Tylenol 1 tab PO Q8H PRN #15 tab 07/13/18 Unknown Rx /Codeine # 3 tab] Cyclobenzaprine [Flexeril] 10 mg PO BID PRN #20 tablet 07/13/18 Unknown Rx Naproxen [Naprosyn TAB] 500 mg PO BID #15 tablet 07/13/18 Unknown Rx methOCARBAMOL [Robaxin TAB] 500 mg PO BID #15 tab 07/13/18 Unknown Rx Azithromycin [Zithromax Z-ISIS] 250 mg PO DAILY #6 tab 09/27/19 Unknown Rx traMADoL [Ultram 50 MG tab] 50 mg PO Q6HR PRN #10 tablet 09/27/19 Unknown Rx Allergies Allergy/AdvReac Type Severity Reaction Status Date / Time aspirin Allergy Swelling Verified 06/05/18 10:16 ED Review of Systems ROS: Stated complaint: RT FOOT PAIN/SWOLLEN Other details as noted in HPI Constitutional: denies: chills, fever Eyes: denies: eye pain, eye discharge, vision change ENT: denies: ear pain, throat pain Respiratory: denies: cough, shortness of breath, wheezing Cardiovascular: denies: chest pain, palpitations Endocrine: no symptoms reported Gastrointestinal: denies: abdominal pain, nausea, diarrhea Genitourinary: denies: urgency, dysuria, discharge Musculoskeletal: denies: back pain, joint swelling, arthralgia Skin: denies: rash, lesions Neurological: denies: headache, weakness, paresthesias Psychiatric: denies: anxiety, depression Hematological/Lymphatic: denies: easy bleeding, easy bruising ED Past Medical Hx - Past Medical History Previous Medical History?: Yes Hx Diabetes: Yes Hx Arthritis: Yes Hx Asthma: Yes Additional medical history: Rheumatoid arthritis. Osteoarthritis. Chronic back pain - Surgical History Past Surgical History?: Yes Hx Cholecystectomy: Yes Additional Surgical History: tonsils, eye, spur removal - Social History Smoking Status: Former Smoker - Medications Home Medications: Home Medications Medication Instructions Recorded Confirmed Last Taken Type Ciprofloxacin HCl [Ciprofloxacin 500 mg PO Q12HR #14 tab 02/28/18 Unknown Rx TAB] Famotidine [Pepcid] 20 mg PO BID #20 tablet 06/05/18 Unknown Rx Acetaminophen/Codeine [Tylenol 1 tab PO Q8H PRN #15 tab 07/13/18 Unknown Rx /Codeine # 3 tab] Cyclobenzaprine [Flexeril] 10 mg PO BID PRN #20 tablet 07/13/18 Unknown Rx Naproxen [Naprosyn TAB] 500 mg PO BID #15 tablet 07/13/18 Unknown Rx methOCARBAMOL [Robaxin TAB] 500 mg PO BID #15 tab 07/13/18 Unknown Rx Azithromycin [Zithromax Z-ISIS] 250 mg PO DAILY #6 tab 09/27/19 Unknown Rx traMADoL [Ultram 50 MG tab] 50 mg PO Q6HR PRN #10 tablet 09/27/19 Unknown Rx ED Physical Exam - General Limitations: No Limitations General appearance: alert, in no apparent distress - Head Head exam: Present: atraumatic, normocephalic - Extremities Exam Extremities exam: Present: normal inspection, full ROM, tenderness, normal capillary refill. Absent: joint swelling, calf tenderness - Expanded Lower Extremity Exam Right Hip exam: Present: normal inspection, full ROM. Absent: tenderness, swelling Upper Leg exam: Present: normal inspection, full ROM. Absent: tenderness, swelling Knee exam: Present: normal inspection, full ROM. Absent: tenderness, swelling Lower Leg exam: Present: normal inspection, full ROM. Absent: tenderness, swelling Ankle exam: Present: normal inspection, full ROM, tenderness. Absent: swelling, abrasion, laceration, ecchymosis, deformity, crepidus, dislocation, erythema, anterior draw sign Foot/Toe exam: Present: normal inspection, full ROM. Absent: tenderness, swelling Neuro vascular tendon exam: Present: no vascular compromise Gait: Positive: observed and normal - Back Exam Back exam: Present: normal inspection, full ROM - Neurological Exam Neurological exam: Present: alert, oriented X3, normal gait - Psychiatric Psychiatric exam: Present: normal affect, normal mood - Skin Skin exam: Present: warm, dry, intact, normal color. Absent: rash ED Course Vital Signs 11/13/19 08:59 Temperature 98.7 F Pulse Rate 85 Respiratory 18 Rate Blood Pressure 150/93 O2 Sat by Pulse 95 Oximetry - Reevaluation(s) Reevaluation #1: 11/13/19 10:07 Patient is speaking in full sentences with no signs of distress noted. ED Lower Extremity MDM - Medical Decision Making This is a 58-year-old female that presents with chronic right ankle pain. Pat ent is stable and was examined by me. I referred patient to an orthopedic doctor for further evaluation. Patient presents with nonthreatening emergency condition during today's visit. Patient does have normal gait with no tenderness and no joint swelling. No ecchymosis. no joint redness or swelling. Not warm to touch. No signs of cellulites present. Patient was instructed to RICE therapy. At time of discharge, the patient does not seem toxic or ill in appearance. No acute signs of distress noted. Patient agrees to discharge treatment plan of care. No further questions noted by the patient. Critical care attestation.: If time is entered above; I have spent that time in minutes in the direct care of this critically ill patient, excluding procedure time. ED Disposition Clinical Impression: Chronic pain of right ankle Disposition: MED SCREENING EXAM-LEFT Is pt being admited?: No Does the pt Need Aspirin: No Condition: Stable Instructions: RICE Therapy (ED) Additional Instructions: Follow-up with a primary care and orthopedic doctor in 3-5 days or if symptoms worsen and continue return to emergency room as soon as possible. Referrals: PRIMARY CARE, [Primary Care Provider] - 3-5 Days BRENTON SAMUEL MD [Staff Physician] - 3-5 Days DUC KRAUSE MD [Staff Physician] - 3-5 Days [facility] [Outside] - 3-5 Days
== END 2019-11-13 10:15 | disposition left against medical advice (07) ==
LOC: ED 08:45
DX: G89.29 Other chronic pain (principal); M25.571 Pain in right ankle and joints of right foot; E11.9 Type 2 diabetes mellitus without complications; M19.90 Unspecified osteoarthritis, unspecified site; J45.909 Unspecified asthma, uncomplicated; M06.9 Rheumatoid arthritis, unspecified
CPT/HCPCS: 99282

== ENCOUNTER 2019-12-31 15:53 | Emergency (ER) | payer MEDICARE ==
[2019-12-31] MEDS ORDERED: ASPIRIN 325 MG TAB PO ONE (16:57)
--- NOTE | 2019-12-31 17:21 | XRay Report ---
CHEST 1 VIEW INDICATION / CLINICAL INFORMATION: MAIN: Chest Pain FOR 2 DAYS. COMPARISON: None available. FINDINGS: SUPPORT DEVICES: None. HEART / MEDIASTINUM: No significant abnormality. LUNGS / PLEURA: No significant pulmonary or pleural abnormality. No pneumothorax. ADDITIONAL FINDINGS: No significant additional findings. IMPRESSION: 1. No acute findings. Signer Name: Krishna Collazo MD Signed: 12/31/2019 5:17 PM Workstation Name: [id number]
[2019-12-31 17:49] LABS: Basophils # (Auto) 0.1 K/mm3 (0.0-0.1); Basophils % (Auto) 1.2 % (0.0-1.8); Eosinophils # (Auto) 0.1 K/mm3 (0.0-0.4); Eosinophils % (Auto) 1.7 % (0.0-4.3); Hematocrit 40.5 % (30.3-42.9); Hemoglobin 13.5 gm/dl (10.1-14.3); Lymphocytes # (Auto) 4.5 K/mm3 (1.2-5.4); Lymphocytes % (Auto) 52.2 % (13.4-35.0); Mean Corpuscular HGB Conc 33 % (30-34); Mean Corpuscular Volume 88 fl (79-97); Monocytes # (Auto) 0.5 K/mm3 (0.0-0.8); Platelet Count 304 K/mm3 (140-440); Red Blood Count 4.61 M/mm3 (3.65-5.03); Red Cell Distribution Width 15.1 % (13.2-15.2)
[2019-12-31 18:07] LABS: BUN/Creatinine Ratio 13; Blood Urea Nitrogen 10 mg/dL (7-17); Calcium 9.6 mg/dL (8.4-10.2); Hemolysis Index 5
[2019-12-31] MEDS ORDERED: LIDOCAINE VISCOUS 2% 15 ML ORAL LIQD PO ONE (18:44)
[2019-12-31] MEDS ORDERED: ALUM-MAG HYDROXIDE-SIMETHICONE 200-200-20MG/5ML ORAL LIQD 30 ML PO ONE (18:44)
--- NOTE | 2019-12-31 18:52 | Emergency Department Report ---
ED Abdominal Pain HPI - General Chief Complaint: Chest Pain Stated Complaint: CHEST PAIN, BURNING Time Seen by Provider: 12/31/19 18:41 Source: patient Mode of arrival: Ambulatory Limitations: No Limitations - History of Present Illness Initial Comments: Condition is a 59-year-old female that presents to emergency with complaints of epigastric pain. Patient states epigastric pain is burning and is radiating to her lower chest. Patient states that the pain is worse with palpation and eating. Patient states the pain is better with rest and antacids. Patient describes the pain as a burning sensation. Patient states the pain is a 3 out of 10. MD Complaint: abdominal pain -: Sudden Location: epigastric Radiation: chest Migration to: no migration Severity: mild Severity scale (0 -10): 3 Quality: burning Consistency: constant Improves With: eating, rest Worsens With: movement, other Associated Symptoms: denies: nausea, vomiting, diarrhea, fever, chills, constipation, dysuria, hematemesis, hematochezia, melena, hematuria, anorexia, syncope Treatments Prior to Arrival: antacids - Related Data LMP (females 10-50): other Previous Rx's Medication Instructions Recorded Last Taken Type Ciprofloxacin HCl [Ciprofloxacin 500 mg PO Q12HR #14 tab 02/28/18 Unknown Rx TAB] Famotidine [Pepcid] 20 mg PO BID #20 tablet 06/05/18 Unknown Rx Acetaminophen/Codeine [Tylenol 1 tab PO Q8H PRN #15 tab 07/13/18 Unknown Rx /Codeine # 3 tab] Cyclobenzaprine [Flexeril] 10 mg PO BID PRN #20 tablet 07/13/18 Unknown Rx Naproxen [Naprosyn TAB] 500 mg PO BID #15 tablet 07/13/18 Unknown Rx methOCARBAMOL [Robaxin TAB] 500 mg PO BID #15 tab 07/13/18 Unknown Rx Azithromycin [Zithromax Z-ISIS] 250 mg PO DAILY #6 tab 09/27/19 Unknown Rx traMADoL [Ultram 50 MG tab] 50 mg PO Q6HR PRN #10 tablet 09/27/19 Unknown Rx Pantoprazole Sodium [Protonix] 40 mg PO DAILY 30 Days #30 tab 12/31/19 Unknown Rx Allergies Allergy/AdvReac Type Severity Reaction Status Date / Time aspirin Allergy Swelling Verified 12/31/19 18:42 ED Review of Systems ROS: Stated complaint: CHEST PAIN, BURNING Other details as noted in HPI Constitutional: denies: chills, fever Eyes: denies: eye pain, eye discharge, vision change ENT: denies: ear pain, throat pain Respiratory: denies: cough, shortness of breath, wheezing Cardiovascular: chest pain. denies: palpitations Endocrine: no symptoms reported Gastrointestinal: as per HPI, abdominal pain. denies: nausea, vomiting, diarrhea, constipation, hematemesis, melena, hematochezia Genitourinary: denies: urgency, dysuria, discharge Musculoskeletal: denies: back pain, joint swelling, arthralgia Skin: denies: rash, lesions Neurological: denies: headache, weakness, paresthesias Psychiatric: denies: anxiety, depression Hematological/Lymphatic: denies: easy bleeding, easy bruising ED Past Medical Hx - Past Medical History Previous Medical History?: Yes Hx Diabetes: Yes Hx Arthritis: Yes Hx Asthma: Yes Additional medical history: Rheumatoid arthritis. Osteoarthritis. Chronic back pain - Surgical History Past Surgical History?: Yes Hx Cholecystectomy: Yes Additional Surgical History: tonsils, eye, spur removal - Family History Family history: no significant - Social History Smoking Status: Never Smoker Substance Use Type: None, Prescribed - Medications Home Medications: Home Medications Medication Instructions Recorded Confirmed Last Taken Type Ciprofloxacin HCl [Ciprofloxacin 500 mg PO Q12HR #14 tab 02/28/18 Unknown Rx TAB] Famotidine [Pepcid] 20 mg PO BID #20 tablet 06/05/18 Unknown Rx Acetaminophen/Codeine [Tylenol 1 tab PO Q8H PRN #15 tab 07/13/18 Unknown Rx /Codeine # 3 tab] Cyclobenzaprine [Flexeril] 10 mg PO BID PRN #20 tablet 07/13/18 Unknown Rx Naproxen [Naprosyn TAB] 500 mg PO BID #15 tablet 07/13/18 Unknown Rx methOCARBAMOL [Robaxin TAB] 500 mg PO BID #15 tab 07/13/18 Unknown Rx Azithromycin [Zithromax Z-ISIS] 250 mg PO DAILY #6 tab 09/27/19 Unknown Rx traMADoL [Ultram 50 MG tab] 50 mg PO Q6HR PRN #10 tablet 09/27/19 Unknown Rx Pantoprazole Sodium [Protonix] 40 mg PO DAILY 30 Days #30 tab 12/31/19 Unknown Rx ED Physical Exam - General Limitations: No Limitations General appearance: alert, in no apparent distress - Head Head exam: Present: atraumatic, normocephalic - Eye Eye exam: Present: normal appearance - ENT ENT exam: Present: mucous membranes moist - Neck Neck exam: Present: normal inspection - Respiratory Respiratory exam: Present: normal lung sounds bilaterally, chest wall tenderness. Absent: respiratory distress - Cardiovascular Cardiovascular Exam: Present: regular rate, normal rhythm. Absent: systolic murmur, diastolic murmur, rubs, gallop - GI/Abdominal GI/Abdominal exam: Present: soft, tenderness (epigastric tenderness.), normal bowel sounds - Extremities Exam Extremities exam: Present: normal inspection - Back Exam Back exam: Present: normal inspection - Neurological Exam Neurological exam: Present: alert, oriented X3 - Psychiatric Psychiatric exam: Present: normal affect, normal mood - Skin Skin exam: Present: warm, dry, intact, normal color. Absent: rash ED Course Vital Signs 12/31/19 12/31/19 16:04 20:22 Temperature 97.8 F 98 F Pulse Rate 86 66 Respiratory 18 17 Rate Blood Pressure 143/81 Blood Pressure 136/86 [Left] O2 Sat by Pulse 98 100 Oximetry - Reevaluation(s) Reevaluation #1: I discussed all results with patient. Discussed plan of care with patient. Patient agrees with plan of care and discharge. Patient will be discharged home. Patient stable at discharge. Patient given discharge. Patient was unde rstanding of discharge instructions/. 12/31/19 19:23 ED Medical Decision Making - Lab Data Result diagrams: 12/31/19 17:30 12/31/19 17:30 - EKG Data -: EKG Interpreted by Ma EKG shows normal: sinus rhythm, intervals, QRS complexes, ST-T waves Rate: normal - EKG Data Interpretation: other (AXIS DEVIATION. LAF, ) - Radiology Data Radiology results: report reviewed, image reviewed CHEST 1 VIEW INDICATION / CLINICAL INFORMATION: MAIN: Chest Pain FOR 2 DAYS. COMPARISON: None available. FINDINGS: SUPPORT DEVICES: None. HEART / MEDIASTINUM: No significant abnormality. LUNGS / PLEURA: No significant pulmonary or pleural abnormality. No pneumothorax. ADDITIONAL FINDINGS: No significant additional findings. IMPRESSION: 1. No acute findings - Medical Decision Making Patient is a 59-year-old female that presents to the emergency room with complaints of epigastric pain rating to her chest 2 days. I patient states that her chest pain resolved with the GI cocktail. Patient's chest pain and epigastric pain are consistent with gastritis and reflux. Patient given discharge instructions. Patient's labs unremarkable. Patient's chest x-ray negative. Patient's EKG negative for acute findings. Patient discharged home.. - Differential Diagnosis GERD, chest pain, reflux. gastritis Critical care attestation.: If time is entered above; I have spent that time in minutes in the direct care of this critically ill patient, excluding procedure time. ED Disposition Clinical Impression: Epigastric abdominal pain GERD (gastroesophageal reflux disease) Qualifiers: Esophagitis presence: with esophagitis Qualified Code(s): K21.0 - Gastro- esophageal reflux disease with esophagitis Gastritis Qualifiers: Gastritis type: unspecified gastritis Chronicity: acute Gastritis bleeding: without bleeding Qualified Code(s): K29.00 - Acute gastritis without bleeding Chest pain Qualifiers: Chest pain type: unspecified Qualified Code(s): R07.9 - Chest pain, unspecified Disposition: TO HOME OR SELFCARE Is pt being admited?: No Does the pt Need Aspirin: No Condition: Stable Instructions: Chest Pain (ED), Diet for Ulcers and Gastritis (ED), Gastroesophageal Reflux Disease (ED) Additional Instructions: Patient to follow up with primary care in 2-3 days. Patient to follow up with GI in 2-3 days. Patient to return to ER if condition worsens, changes or new symptoms arise. Patient to be a reflux diet. Patient to rest. Patient to increase water. Patient to continue all medications. Prescriptions: Pantoprazole Sodium [Protonix] 40 mg PO DAILY 30 Days #30 tab Referrals: EDDY LAWRENCE MD [Staff Physician] - 2-3 Days Time of Disposition: 19:22
[2019-12-31 20:24] VITALS: BP 136/86
== END 2019-12-31 20:22 | disposition home or self-care (01) ==
LOC: ED 15:53
DX: K29.00 Acute gastritis without bleeding (principal); R10.13 Epigastric pain; K21.9 Gastro-esophageal reflux disease without esophagitis; R07.89 Other chest pain; E11.9 Type 2 diabetes mellitus without complications; M19.90 Unspecified osteoarthritis, unspecified site; J45.909 Unspecified asthma, uncomplicated; Z90.49 Acquired absence of other specified parts of digestive tract; Z98.890 Other specified postprocedural states; Z79.899 Other long term (current) drug therapy; Z88.6 Allergy status to analgesic agent
CPT/HCPCS: 36415; 71045; 80048; 84484; 85025; 93005; 93010